=== PATIENT | male | born 1940 | race Two or more races ===

== ENCOUNTER 2021-12-05 09:16 | Emergency (ER) | payer OTHER ==
[~2021-12-05] VITALS: Ht 165.1 cm; Wt 102.1 kg
[2021-12-05] MEDS ORDERED: COZAAR50 MG PO (09:32)
[2021-12-05] MEDS ORDERED: ECOTRIN81 MG PO (09:33)
[2021-12-05] MEDS ORDERED: NAMENDA10 MG PO (09:33)
[2021-12-05] MEDS ORDERED: IBU600 MG PO (16:51)
[2021-12-05] MEDS ORDERED: PEPCID AC20 MG PO (16:51)
== END 2021-12-05 17:16 ==
LOC: ER 09:16
DX: I88.0 Nonspecific mesenteric lymphadenitis (principal); I10 Essential (primary) hypertension; Z20.822 Contact with and (suspected) exposure to COVID-19; N20.0 Calculus of kidney